=== PATIENT | male | born 2000 | race Two or more races ===

== ENCOUNTER 2023-04-12 13:18 | Emergency (ER) | payer OTHER ==
[~2023-04-12] VITALS: Ht 180.3 cm; Wt 90.9 kg
[2023-04-12 14:10] VITALS: PULSE 88; RESP 18; O2SAT 98
[2023-04-12] MEDS ORDERED: TETANUS-DIPTH-ACEL PERTUSSIS 0.5ML SYR Tdap IM ONE (14:30)
[2023-04-12] MEDS ORDERED: NAPR-1334 PO (16:46)
[2023-04-12] MEDS ORDERED: HYDR-4902 PO (16:46)
[2023-04-12] MEDS ORDERED: ZOFR4T PO (16:47)
[2023-04-12] MEDS ORDERED: MORPHINE SULFATE 4 MG/ML SYR/VIAL IV ONE (17:00)
[2023-04-12] MEDS ORDERED: ONDANSETRON HCL 4 MG/2 ML VIAL IV ONE (17:00)
[2023-04-12 17:38] VITALS: BP 120/72; PULSE 96; RESP 20
== END 2023-04-12 19:18 | disposition home or self-care (01) ==
LOC: ER 13:18
DX: S62.311A Displaced fracture of base of second metacarpal bone, left hand, initial encounter for closed fracture (principal); S62.313A Displaced fracture of base of third metacarpal bone, left hand, initial encounter for closed fracture; S62.315A Displaced fracture of base of fourth metacarpal bone, left hand, initial encounter for closed fracture; S00.83XA Contusion of other part of head, initial encounter; F15.90 Other stimulant use, unspecified, uncomplicated; Z87.891 Personal history of nicotine dependence; V59.9XXA Occupant (driver) (passenger) of pick-up truck or van injured in unspecified traffic accident, initial encounter; Y93.I9 Activity, other involving external motion; Y92.89 Other specified places as the place of occurrence of the external cause; Y99.8 Other external cause status
CPT/HCPCS: 29125; 70450; 72125; 73110; 73130; 90471; 90715; 96374; 96375; 99285; J2270; J2405